=== PATIENT | male | born 1960 | race Hispanic/Latino ===

== ENCOUNTER 2017-10-27 11:06 | Emergency (ER) | payer OTHER, SELFPAY ==
--- NOTE | 2017-10-27 12:12 | RAD ---
LEFT KNEE 4 VIEWS: HISTORY: Knee injury. FINDINGS: Soft tissue swelling anterior to the patella. There is no underlying joint effusion or fracture. IMPRESSION: Subcutaneous soft tissue swelling. No signs of underlying joint abnormality. POS: [facility]
[2017-10-27] MEDS ORDERED: HYDROcodone/Acetaminophen 10/325 mg Tablet ONE (12:44)
[2017-10-27] MEDS ORDERED: Lidocaine 2% PF 5 ML VIAL ONE (12:49)
[2017-10-27 12:54] LABS: #Eosinphils 0.1 thou/uL (0.0-0.7); #Lymphocytes 2.6 thou/uL (1.20-3.40); #Neutrophils 7.8 thou/uL (1.40-6.50); %Basophils 0.3 % (0.0-1.0); %Eosinophils 0.9 % (0.0-10.0); %Lymphocytes 22.6 % (21.0-51.0); %Monocytes 8.9 % (0.0-10.0); Hematocrit 48.9 % (42.0-52.0); Mean Platelet Volume 7.3 fL (7.4-10.4); Red Blood Cell (RBC) Count 5.57 mill/uL (4.70-6.10); White Blood Cell (WBC) Count 11.6 thou/uL (4.8-10.8)
[2017-10-27] MEDS ORDERED: cefTRIAXone\\ROCEPHIN 500 MG VIAL ONE (13:04)
[2017-10-27] MEDS ORDERED: Lidocaine 1% PF 5 ML VIAL ONE (13:04)
[2017-10-27 13:14] LABS: ALT (SGPT) 59 U/L (8-55); AST (SGOT) 30 U/L (5-34); Alkaline Phosphatase 112 U/L (40-150); Anion Gap 11 mmol/L (10-20); BUN (Urea Nitrogen) 18 mg/dL (8.4-25.7); Bilirubin, Total 0.6 mg/dL (0.2-1.2); Calc. Creatinine Clearance 0 mL/min (70-130); Calcium 9.3 mg/dL (7.8-10.44); Carbon Dioxide 27 mmol/L (22-29); Chloride 106 mmol/L (98-107); Estimated GFR-MDRD Greater than 90; Globulin 3.5 g/dL (2.4-3.5); Protein, Total 7.6 g/dL (6.0-8.3)
== END 2017-10-27 13:50 | disposition home or self-care (01) ==
LOC: ERS 11:06
DX: L03.116 Cellulitis of left lower limb (principal); M25.562 Pain in left knee
CPT/HCPCS: 10060; 36415; 80053; 85025; 96372; J0696; J2001

== ENCOUNTER 2024-02-06 16:48 | Emergency (ER) | payer SELFPAY ==
[2024-02-06 17:08] LABS: #Basophils 0.1 thou/uL (0.0-0.2); #Eosinphils 0.1 thou/uL (0.0-0.7); #Monocytes 1.1 thou/uL (0.11-0.59); #Neutrophils 6.5 thou/uL (1.40-6.50); %Basophils 0.6 % (0.0-1.0); %Eosinophils 1.2 % (0.0-10.0); %Lymphocytes 29.7 % (21.0-51.0); %Monocytes 9.6 % (0.0-10.0); %Neutrophils 56.8 % (42.0-75.0); Hematocrit 48.1 % (42.0-52.0); Hemoglobin 16.7 g/dL (14.0-18.0); Mean Corpuscular HGB CONC 34.7 g/dL (32.0-36.0); Mean Corpuscular Hemoglobin 29.5 pg (27.0-31.0); Mean Platelet Volume 10.1 fL (7.4-10.4); Platelet Count 225 10x3/uL (130-400); RBC Distribution Width 12.8 % (11.5-14.5); Red Blood Cell (RBC) Count 5.66 mill/uL (4.70-6.10); White Blood Cell (WBC) Count 11.4 10x3/uL (4.8-10.8)
[2024-02-06] MEDS ORDERED: Nitroglycerin 2% Ointment 1 INCH/1 GM Packet ONE (17:22)
[2024-02-06] MEDS ORDERED: Aspirin Chewable 81 MG TAB ONE (17:23)
[2024-02-06 17:32] LABS: ALT (SGPT) 87 U/L (8-55); AST (SGOT) 41 U/L (5-34); Alkaline Phosphatase 119 U/L (40-110); Anion Gap 15 mmol/L (10-20); BUN (Urea Nitrogen) 13 mg/dL (8.4-25.7); Bilirubin, Total 0.8 mg/dL (0.2-1.2); Calc. Creatinine Clearance 0 mL/min (70-130); Calcium 9.1 mg/dL (7.8-10.44); Carbon Dioxide 24 mmol/L (23-31); Chloride 104 mmol/L (98-107); Estimated GFR 100; Globulin 2.9 g/dL (2.4-3.5); Glucose 100 mg/dL (80-115); Potassium 3.9 mmol/L (3.5-5.1); Protein, Total 6.9 g/dL (5.8-8.1); Sodium 139 mmol/L (136-145)
[2024-02-06 17:36] LABS: Troponin I Less than 0.010 ng/mL (< 0.028)
== END 2024-02-06 18:50 | disposition left against medical advice (07) ==
LOC: ERS 16:48
DX: I10 Essential (primary) hypertension (principal); Z79.899 Other long term (current) drug therapy
CPT/HCPCS: 71045; 80053; 84484; 85025; 93005